=== PATIENT | male | born 1990 | race Caucasian/White ===

== ENCOUNTER 2016-09-09 16:57 | Emergency (ER) | payer OTHER ==
[~2016-09-09 16:57] MED LIST: TYLENOL WITH C1 EACH PO
[2016-09-09] MEDS ORDERED: EXCEDRIN EXTRA1 EAC4 PO (17:07)
[2016-09-09] MEDS ORDERED: IBUPROFEN200 M2 PO (17:07)
[2016-09-09] MEDS ORDERED: NORCO 5-325 TA1 EACH PO (18:18)
== END 2016-09-09 18:31 ==
LOC: EDMED 16:57
DX: S92.351A Displaced fracture of fifth metatarsal bone, right foot, initial encounter for closed fracture (principal); F17.200 Nicotine dependence, unspecified, uncomplicated; J45.909 Unspecified asthma, uncomplicated; X50.1XXA Overexertion from prolonged static or awkward postures, initial encounter; Y92.69 Other specified industrial and construction area as the place of occurrence of the external cause; Y99.0 Civilian activity done for income or pay